=== PATIENT | male | born 1945 | race Caucasian/White ===

== ENCOUNTER 2017-05-22 18:15 | Emergency (ER) | payer OTHER ==
[~2017-05-22] VITALS: Ht 182.9 cm; Wt 93.5 kg
[~2017-05-22 18:15] MED LIST: ADULT LOW DOSE81 M1 PO; AMBIEN10 MG PO; Ambien PO; COLACE100 MG PO; DICLOFENAC SOD100 MG PO; DIOVAN320 MG PO; FLOMAX0.4 MG PO; Fish Oil PO; GLUCOPHAGE500 MG PO; HYDROCODON-ACE1 EAC7 PO; LEVAQUIN500 MG PO; Levaquin PO; PERCOCET 5/31 TABLET PO; PRAVACHOL20 MG PO; TORADOL10 MG PO; Vitamin-E PO; ZESTRIL,PRINIV2.5 MG PO; ZESTRIL40 MG PO; ZIAC 10/6.251 TABLET PO; ZOFRAN4 MG PO
[2017-05-22] MEDS ORDERED: TYLENOL WITH C1 EACH PO (20:00)
[2017-05-22 20:17] VITALS: BP 153/70
== END 2017-05-22 20:17 | disposition home or self-care (01) ==
LOC: EME 18:15
DX: S42.214A Unspecified nondisplaced fracture of surgical neck of right humerus, initial encounter for closed fracture (principal); S42.251A Displaced fracture of greater tuberosity of right humerus, initial encounter for closed fracture; W18.39XA Other fall on same level, initial encounter; Y93.K1 Activity, walking an animal; I10 Essential (primary) hypertension; E11.9 Type 2 diabetes mellitus without complications; Z79.84 Long term (current) use of oral hypoglycemic drugs; Z79.82 Long term (current) use of aspirin; Z87.891 Personal history of nicotine dependence
CPT/HCPCS: 73030